=== PATIENT | female | born 1995 | race Caucasian/White ===

== ENCOUNTER 2020-05-14 03:53 | Inpatient (IN) ==
[2020-05-14] MEDS ORDERED: Lidocaine 1% 20 ML MDV INFILT PRN (03:55)
[2020-05-14] MEDS ORDERED: Metoclopramide 10 MG/2 ML VIAL IVP PRN (03:55)
[2020-05-14] MEDS ORDERED: Ondansetron 4 MG/2 ML VIAL IVP PRN (03:55)
[2020-05-14] MEDS ORDERED: Azithromycin 500 MG in 0.9 % Sodium Chloride 250 ML IVPB ONE (03:55)
[2020-05-14] MEDS ORDERED: Famotidine 20 MG/2 ML VIAL IVP PRN (03:55)
[2020-05-14] MEDS ORDERED: Naloxone 0.4 MG/ML INJ IVP PRN (03:55)
[2020-05-14] MEDS ORDERED: Ringers Solution, Lactated 1,000 ML IVC SCH (04:00)
[2020-05-14] MEDS ORDERED: FLU Vac QV 20-21 (6Month+)/PF 0.5 ML SYRINGE IM ONE (04:11)
[2020-05-14 04:35] LABS: Basophils # 0.1 K/mcL (0.0-0.2); Basophils % 0.4 %; Eosinophils # 0.2 K/mcL (0.0-0.6); Eosinophils % 1.2 %; Hemoglobin 11.2 g/dL (11.5-15.4); Immature Granulocytes % 0.4 % (0-4); Lymphocytes % 22.3 %; Mean Corpuscular Hemoglobin 25.7 pg (28.0-33.3); Mean Corpuscular Volume 80.3 fL (83.0-100.0); Monocytes # 0.8 K/mcL (0.0-1.3); Monocytes % 6.2 %; Neutrophils # 9.2 K/mcL (1.6-8.9); Platelet Count 337 K/mcL (140-400); Red Blood Count 4.36 M/mcL (3.82-4.97); Red Cell Distribution Width 14.2 % (11.5-14.5); Segmented Neutrophils % 69.5 %; White Blood Count 13.2 K/mcL (4.3-11.1)
[2020-05-14 04:42] LABS: Amphetamine Screen,Urine Negative ng/mL (Cutoff=1000); Barbiturate Screen,Urine Negative ng/mL (Cutoff=200); Benzodiazepines Screen,Urine Negative ng/mL (Cutoff=200); Cannabinoid Screen,Urine Negative ng/mL (Cutoff = 50); Cocaine Screen,Urine Negative ng/mL (Cutoff= 300); Opiate Screen,Urine Negative ng/mL (Cutoff=300); Phencyclidine Screen,Urine Negative ng/mL (Cutoff=25)
[2020-05-14] MEDS: miSOPROStoL 25 MCG TABLET PO PRN ×2 (05:08→09:24)
[2020-05-14] MEDS: *HR* FentaNYL (PF) 100 MCG/2 ML VIAL IVP PRN ×2 (12:16→13:30)
[2020-05-14] MEDS ORDERED: Oxytocin 20 units/ LR 1000 mL 20 UNIT/1,000 ML BAG IVC SCH (13:30)
[2020-05-14] MEDS ORDERED: EPHEDrine 50 MG/ML VIAL IVP PRN (15:08)
[2020-05-14] MEDS: Epidural Premix (fent/bupiv) 110 ML EP SCH ×2 (15:33→23:26)
[2020-05-14] MEDS ORDERED: 0.9 % Sodium Chloride 1,000 ML ONE (16:39)
[2020-05-15] MEDS ORDERED: CeFAZolin 2,000 MG/50 ML BAG IVPB ONE (03:30)
[2020-05-15] MEDS ORDERED: Azithromycin 500 MG in 0.9 % Sodium Chloride 250 ML IVPB ONE (04:13)
[2020-05-15] MEDS ORDERED: *HR* Oxytocin 10 UNIT/ML VIAL IM ONE (04:31)
[2020-05-15] MEDS ORDERED: Ringers Solution, Lactated 1,000 ML ONE (04:31)
[2020-05-15] MEDS ORDERED: Ondansetron 4 MG/2 ML VIAL ONE (04:40)
[2020-05-15] MEDS ORDERED: Lidocaine/EPI 1:200k 2% PF 20 ML VIAL ONE (04:40)
[2020-05-15] MEDS ORDERED: Dexamethasone 4 MG/ML VIAL ONE (04:40)
[2020-05-15] MEDS ORDERED: *HR* Meperidine 50 MG/ML SYRINGE IVP PRN (04:54)
[2020-05-15] MEDS ORDERED: Ondansetron 4 MG/2 ML VIAL IVP PRN ×2 (04:55→07:38)
[2020-05-15] MEDS ORDERED: Acetaminophen IV 1,000 MG/100 ML INFUS..BTL ONE (04:57)
[2020-05-15] MEDS ORDERED: Ketorolac 30 MG/ML VIAL ONE (04:57)
[2020-05-15] MEDS ORDERED: *HR* Morphine Sulfate/PF 10 MG/10 ML AMPUL ONE (04:59)
[2020-05-15] MEDS ORDERED: Metoclopramide 10 MG/2 ML VIAL IVP PRN (07:38)
[2020-05-15] MEDS ORDERED: Acetaminophen 325 MG TABLET PO PRN (07:38)
[2020-05-15] MEDS ORDERED: Sennosides 8.6 MG TABLET PO PRN (07:38)
[2020-05-15] MEDS ORDERED: *HR* OxyCODONE/APAP 5/325 TABLET PO PRN (07:38)
[2020-05-15] MEDS ORDERED: Simethicone 80 MG TAB.CHEW PO PRN (07:38)
[2020-05-15] MEDS: Oxytocin 20 units/ LR 1000 mL 20 UNIT/1,000 ML BAG IVC SCH ×2 (08:21→15:54)
[2020-05-15] MEDS: metroNIDAZOLE 500 MG TABLET PO SCH ×3 (08:54→20:25)
[2020-05-15] MEDS ORDERED: [UNRECOGNIZED DRUG - OTHER] PO SCH (09:00)
[2020-05-15] MEDS ORDERED: Prenatal Vit/FA 1 EACH TABLET PO SCH (09:00)
[2020-05-15] MEDS: ceFAZolin 2,000 MG in Water for inj. (sterile) 10 ML IVP SCH ×2 (11:05→18:49)
[2020-05-15] MEDS: Ibuprofen 600 MG TABLET PO PRN ×2 (17:04→23:07)
[2020-05-16] MEDS ORDERED: ceFAZolin 2,000 MG in Water for inj. (sterile) 20 ML IVP SCH (02:30)
[2020-05-16 05:31] LABS: Basophils % 0.2 %; Eosinophils # 0.1 K/mcL (0.0-0.6); Eosinophils % 0.8 %; Hematocrit 29.7 % (35.3-44.9); Immature Granulocytes % 0.5 % (0-4); Lymphocytes # 1.3 K/mcL (0.6-4.6); Lymphocytes % 9.5 %; Mean Corpuscular HGB Conc 31.3 g/dL (31.6-35.5); Mean Corpuscular Hemoglobin 25.4 pg (28.0-33.3); Mean Corpuscular Volume 81.1 fL (83.0-100.0); Mean Platelet Volume 10.7 fL (9.4-12.4); Monocytes # 0.6 K/mcL (0.0-1.3); Monocytes % 4.2 %; Neutrophils # 11.3 K/mcL (1.6-8.9); Platelet Count 257 K/mcL (140-400); Red Blood Count 3.66 M/mcL (3.82-4.97); Red Cell Distribution Width 14.6 % (11.5-14.5); Segmented Neutrophils % 84.8 %; White Blood Count 13.3 K/mcL (4.3-11.1)
[2020-05-16 05:37] LABS: Hemoglobin 9.3 g/dL (11.5-15.4)
[2020-05-16] MEDS: Ibuprofen 600 MG TABLET PO PRN ×2 (05:57→14:52)
[2020-05-16 08:23] VITALS: BP 136/81
[2020-05-16] MEDS: metroNIDAZOLE 500 MG TABLET PO SCH ×2 (08:54→14:52)
[2020-05-16] MEDS ORDERED: FLU Vac QV 20-21 (6Month+)/PF 0.5 ML SYRINGE IM ONE (14:36)
== END 2020-05-16 15:30 | disposition home or self-care (01) | DRG 788 ==
LOC: 1NENULAB 03:53 → 1NENUOBS 05-15 07:49
PROVIDERS: ADMIT Obstetrics & Gynecology; ATTEND Obstetrics & Gynecology